=== PATIENT | female | born 1990 | race American Indian/Alaskan Native ===

== ENCOUNTER 2018-02-19 20:57 | Inpatient (IN) | payer OTHER ==
[2018-02-19] MEDS ORDERED: ZOFRAN IV PRN (22:10)
[2018-02-19] MEDS ORDERED: BRETHINE SUB-Q PRN (22:10)
[2018-02-19] MEDS ORDERED: CERVIDIL VG ONE (22:10)
[2018-02-19] MEDS ORDERED: MINERAL OIL PO PRN (22:10)
[2018-02-19] MEDS ORDERED: XYLOCAINE 2% INFILTRATI ONE (22:10)
[2018-02-19] MEDS ORDERED: ePHEDrine SULFATE IV PRN (22:10)
[2018-02-19] MEDS ORDERED: BRETHINE IVP PRN (22:10)
[2018-02-19] MEDS ORDERED: PITOCin/NS 30 UNIT/500ML 30 UNITS/500 ML BAG IV SCH (23:00)
[2018-02-19] MEDS ORDERED: PITOCin/NS 20 UNIT/1000ML DRIP 20 UNITS/1,000 ML BAG IV SCH (23:00)
[2018-02-19] MEDS ORDERED: LACTATED RINGERS 1,000 ML IV SCH (23:00)
[2018-02-19 23:08] LABS: Hematocrit 39.3 % (30.3-42.9); Hemoglobin 13.2 gm/dl (10.1-14.3); Mean Corpuscular HGB Conc 34 % (30-34); Mean Corpuscular Hemoglobin 28 pg (28-32); Mean Corpuscular Volume 84 fl (79-97); Platelet Count 149 K/mm3 (140-440); Red Blood Count 4.67 M/mm3 (3.65-5.03); Red Cell Distribution Width 14.5 % (13.2-15.2)
[2018-02-19] MEDS: SUBLIMAZE IV PRN (23:34)
--- NOTE | 2018-02-20 01:22 | Ultrasound Report ---
FINAL REPORT EXAM: US OB LIMITED HISTORY: presentation COMPARISON: None available. TECHNIQUE: Several real-time grayscale and color Doppler images were obtained. FINDINGS: Limited exam performed for evaluation presentation. presentation cephalic. Single live IUP demonstrated. heart rate 126 beats per minute. IMPRESSION: Single live IUP. Cephalic presentation.
[2018-02-20] MEDS: STADOL IV PRN ×3 (05:41→13:40)
--- NOTE | 2018-02-20 09:42 | History and Physical Report ---
History of Present Illness Date of examination: 02/20/18 Date of admission: 02/19/18 22:24 Chief complaint: Induction of labor History of present illness: Pt is a 27yo BF EDC 02/22/18; EGA 39 5/7 weeks presents for induction of labor per [facility] due to GDM - diet controlled. She transferred care to [facility] since 28 weeks and co-managed by [facility] for GDM. records are available and GBS is Negative. Past History Past Medical History: diabetes (GDM) Past Surgical History: no surgical history [employer] History: herpes, trichomonas Family/Genetic History: sickle cell/trait Social history: no significant social history, single - Obstetrical History Expected Date of Delivery: 02/22/18 Actual Gestation: 39 Week(s) 5 Day(s) : 2 Medications and Allergies Allergies Allergy/AdvReac Type Severity Reaction Status Date / Time No Known Allergies Allergy Verified 02/19/18 22:16 Home Medications Medication Instructions Recorded Confirmed Last Taken Type Vit,Calc76/Iron/Folic 1 tab PO DAILY 02/19/18 02/19/18 02/18/18 15:00 History [Pnv 29-1 Tablet] Active Meds: Active Medications Butorphanol Tartrate (Stadol) 2 mg IV Q2H PRN PRN Reason: Pain , Severe (7-10) Last Admin: 02/20/18 05:41 Dose: 2 mg Ephedrine Sulfate (Ephedrine Sulfate) 10 mg IV Q2M PRN PRN Reason: Hypotension Fentanyl (Sublimaze) 100 mcg IV Q2H PRN PRN Reason: Labor Pain Last Admin: 02/19/18 23:34 Dose: 100 mcg Lactated Ringer's (Lactated Ringers) 1,000 mls @ 125 mls/hr IV DIRECT FARIDEH Last Admin: 02/20/18 00:40 Dose: 125 mls/hr Oxytocin/Sodium Chloride (Pitocin/Ns 20 Unit/1000ml Drip) 20 units in 1,000 mls @ 125 mls/hr IV DIRECT FARIDEH Oxytocin/Sodium Chloride (Pitocin/Ns 30 Unit/500ml) 30 units in 500 mls @ 1 mls /hr IV TITR FARIDEH; Protocol Mineral Oil (Mineral Oil) 30 ml PO QHS PRN PRN Reason: Constipation Ondansetron HCl (Zofran) 4 mg IV Q8H PRN PRN Reason: Nausea And Vomiting Terbutaline Sulfate (Brethine) 0.25 mg SUB-Q ONCE PRN PRN Reason: Hyperstimulation/Hypertonicity Terbutaline Sulfate (Brethine) 0.25 mg IVP ONCE PRN PRN Reason: Hyperstimulation/Hypertonicity Review of Systems All systems: negative - Vital Signs Vital signs: Vital Signs Temp Pulse Resp BP 98.3 F 139 H 18 110/75 02/19/18 21:20 02/19/18 21:20 02/19/18 21:20 02/19/18 21:20 Temp Pulse Resp BP Pulse Ox 98.0 F 109 H 16 102/59 97 02/20/18 07:39 02/20/18 09:45 02/20/18 05:41 02/20/18 09:35 02/20/18 09:45 - Physical Exam Breasts: Positive: deferred Cardiovascular: Regular rate Lungs: Positive: Clear to auscultation Abdomen: Positive: normal appearance Genitourinary (Female): Positive: normal external genitalia Uterus: Positive: enlarged Extremities: Positive: normal - Obstetrical FHR: category 1 Uterine Contraction Monitor Mode: External Cervical Dilatation: 3 (per nurse) Cervical Effacement Percentage: 60 (per nurse) station: -2 Uterine Contraction Pattern: Regular Uterine Tone Measurement Phase: Contraction Uterine Contraction Intensity: Moderate Results Result Diagrams: 02/19/18 22:15 Abnormal lab results 02/19/18 Range/Units 21:20 POC Glucose 163 H (70-105) All other labs normal. Ultrasound: report reviewed Assessment and Plan - Patient Problems (1) 39 weeks gestation of Onset Date: 02/20/18 Current Visit: Yes Status: Acute Plan to address problem: A: IUP @ 39 5/7 weeks GDM - diet controlled P: Admit to L&D for cervidil/pitocin induction of labor Monitor BS's (2) GDM (gestational diabetes mellitus) Onset Date: 02/20/18 Current Visit: Yes Status: Acute Qualifiers: Gestational diabetes mellitus control: diet-controlled Trimester: third trimester Qualified Code(s): O24.410 - Gestational diabetes mellitus in , diet controlled
[2018-02-20] MEDS ORDERED: XYLOCAINE 2% INFILTRATI ONE (10:39)
[2018-02-20] MEDS ORDERED: BRETHINE IVP PRN (10:39)
[2018-02-20] MEDS ORDERED: BRETHINE SUB-Q PRN (10:39)
[2018-02-20] MEDS ORDERED: ePHEDrine SULFATE IV PRN ×2 (10:39→17:12)
[2018-02-20] MEDS ORDERED: MINERAL OIL PO PRN (10:39)
[2018-02-20] MEDS ORDERED: PITOCin/NS 30 UNIT/500ML 30 UNITS/500 ML BAG IV SCH (11:00)
[2018-02-20] MEDS ORDERED: PITOCin/NS 20 UNIT/1000ML DRIP 20 UNITS/1,000 ML BAG IV SCH ×2 (11:00→20:00)
[2018-02-20] MEDS ORDERED: LACTATED RINGERS 1,000 ML IV SCH (11:00)
[2018-02-20] MEDS: SUBLIMAZE IV PRN (15:51)
[2018-02-20] MEDS ORDERED: NARCAN 2 MG/2 ML IV PRN (17:12)
--- NOTE | 2018-02-20 17:12 | Anesthesia Consultation ---
Anesthesia Consult and Med Hx Date of service: 02/20/18 - Airway Anesthetic Teeth Evaluation: Good ROM Head & Neck: Adequate Mental/Hyoid Distance: Adequate Mallampati Class: Class III Intubation Access Assessment: Possibly Difficult - Pre-Operative Health Status ASA Pre-Surgery Classification: ASA2 - Pulmonary Hx Asthma: No COPD: No Hx Pneumonia: No - Cardiovascular System Hx Hypertension: No - Central Nervous System Hx Seizures: No Hx Psychiatric Problems: No - Endocrine Hx Renal Disease: No Hx End Stage Renal Disease: No Hx Hypothyroidism: No Hx Hyperthyroidism: No - Hematic Hx Anemia: No Hx Sickle Cell Disease: Yes (trait) - Other Systems Hx Alcohol Use: No Hx Obesity: Yes (BMI 38.4)
[2018-02-20] MEDS ORDERED: fentaNYL-BUPIV 2 MCG/ML-0.125% 200 MCG/100 ML BAG EPIDURAL SCH (18:00)
--- NOTE | 2018-02-20 19:36 | Procedure Note ---
OB Delivery Note - Delivery Date of Delivery: 02/20/18 Surgeon: TRENT HARRELL Estimated blood loss: 100cc - Vaginal Delivery presentation: vertex Delivery position: OA Intrapartum events: PROM->1hr before delivery Delivery induction: cervidil Delivery augmentation: rupture of membranes, pitocin Delivery monitor: external FHT, external uterine Route of delivery: Delivery placenta: spontaneous Delivery cord: 3 umbilical vessels Delivery laceration: 1st degree (perineal) Delivery repair: vicryl Anesthesia: epidural Delivery comments: Infant delivered OA by CNM, and cord clamped and cut - Infant A at 1 minute: 8 at 5 minutes: 9 Infant Gender: Male (4290gms)
[2018-02-20] MEDS ORDERED: BENADRYL PO PRN (19:37)
[2018-02-20] MEDS ORDERED: PHENERGAN PR PRN (19:37)
[2018-02-20] MEDS ORDERED: PHENERGAN PO PRN (19:37)
[2018-02-20] MEDS ORDERED: MILK OF MAGNESIA PO PRN (19:37)
[2018-02-20] MEDS ORDERED: NORCO 5/325 PO PRN (19:37)
[2018-02-20] MEDS ORDERED: TUCKS PAD TP PRN (19:37)
[2018-02-20] MEDS ORDERED: TYLENOL PO PRN (19:37)
[2018-02-20] MEDS ORDERED: LANSINOH TP PRN (19:37)
[2018-02-20] MEDS ORDERED: ZOFRAN IV PRN (19:37)
[2018-02-20] MEDS ORDERED: DULCOLAX PR PRN (19:37)
[2018-02-20] MEDS ORDERED: SODIUM CHLORIDE FLUSH SYRINGE 10 ML IV NR (20:00)
[2018-02-20] MEDS: MOTRIN PO SCH (23:09)
[2018-02-20] MEDS: COLACE PO SCH (23:10)
[2018-02-20] MEDS: FEOSOL PO SCH (23:10)
[2018-02-21] MEDS: MOTRIN PO SCH ×3 (05:18→23:56)
[2018-02-21 08:28] LABS: Hematocrit 35.2 % (30.3-42.9); Hemoglobin 11.5 gm/dl (10.1-14.3)
[2018-02-21] MEDS ORDERED: PRENATAL VITAMIN PO SCH (10:00)
--- NOTE | 2018-02-21 11:26 | Progress Note ---
Assessment and Plan - Patient Problems (1) 39 weeks gestation of Onset Date: 02/20/18 Current Visit: Yes Status: Resolved (2) GDM (gestational diabetes mellitus) Onset Date: 02/20/18 Current Visit: Yes Status: Resolved Qualifiers: Gestational diabetes mellitus control: diet-controlled Trimester: third trimester Qualified Code(s): O24.410 - Gestational diabetes mellitus in , diet controlled (3) (normal spontaneous vaginal delivery) Onset Date: 02/21/18 Current Visit: Yes Status: Resolved Plan to address problem: A: S/P - PPD #1 Doing well GDM - stable P: May go home tomorrow Subjective - Subjective Date of service: 02/21/18 Principal diagnosis: s/p - PPD #1 Interval history: Pt is feeling well. Bleeding improved. Patient reports: appetite normal, voiding normally, pain well controlled, ambulating normally, no dizzy ambulation, no nauseated : doing well, nursing well, bottle feeding Objective - Vital Signs Latest vital signs: Vital Signs Temp Temp Pulse Resp BP BP Pulse Ox 02/21/18 07:39 98.1 F 106 H 18 82/47 96 02/21/18 04:50 98.3 F 98 H 20 113/78 99 02/20/18 23:09 18 02/20/18 22:56 98.8 F 104 H 20 107/72 97 02/20/18 21:38 116 H 102/56 02/20/18 21:23 118 H 103/57 02/20/18 21:15 110 H 97 02/20/18 21:10 109 H 97 02/20/18 21:08 108 H 94/54 02/20/18 21:05 103 H 98 02/20/18 21:04 112 H 99/61 0 L 02/20/18 20:53 109 H 101/59 02/20/18 20:38 116 H 102/61 02/20/18 20:23 114 H 107/63 02/20/18 20:08 107 H 106/60 02/20/18 20:00 97.1 F L 136 H 48 H 02/20/18 19:53 106 H 102/56 02/20/18 19:51 113 H 108/55 02/20/18 19:49 112 H 100/56 02/20/18 19:46 102 H 112/64 18 19:44 100 H 106/65 18 19:42 103 H 112/65 18 19:40 105 H 106/65 18 19:39 107 H 104/69 18 19:36 110 H 111/67 18 19:34 98 H 112/64 18 19:32 104 H 115/65 18 19:30 101 H 110/63 18 19:29 100 H 108/61 18 19:27 107 H 110/65 18 19:25 111 H 108/60 02/20/18 19:21 113 H 120/65 02/20/18 19:19 116 H 129/83 02/20/18 19:14 106 H 94/53 02/20/18 19:12 100 H 96/52 02/20/18 19:11 115 H 100/59 02/20/18 19:09 109 H 90/55 02/20/18 19:06 100 H 113/69 18 19:05 98 H 100 02/20/18 19:04 98 H 108/69 18 19:02 101 H 107/69 02/20/18 19:00 96 H 107/67 18 18:58 95 H 108/67 18 18:57 102 H 109/73 18 18:55 100 H 99 18 18:54 101 H 109/68 18 18:52 107 H 113/71 02/20/18 18:50 105 H 108/69 98 18 18:48 101 H 110/69 18 18:47 100 H 111/73 18 18:45 101 H 99 18 18:44 100 H 109/56 18 18:42 102 H 116/71 18 18:40 100 H 114/69 100 18 18:39 99 H 115/71 18 18:37 107 H 97/61 18 18:35 102 H 143/79 100 0718 18:33 108 H 107/57 18 18:31 116 H 106/51 02/20/18 18:30 111 H 100 18 18:28 100 H 110/69 02/20/18 18:26 95 H 111/68 18 18:25 94 H 100 0718 18:24 95 H 110/70 02/20/18 18:22 106 H 102/67 18 18:20 101 H 105/69 100 02/20/18 18:18 97 H 105/66 02/20/18 18:16 95 H 105/63 02/20/18 18:15 101 H 108/65 100 02/20/18 18:12 110 H 85/62 02/20/18 18:11 106 H 92/59 02/20/18 18:10 106 H 100 02/20/18 18:09 99 H 100/64 02/20/18 18:06 106 H 81/49 02/20/18 18:05 114 H 88/50 100 02/20/18 18:02 103 H 96/57 02/20/18 18:00 101 H 104/63 02/20/18 17:59 106 H 100/60 02/20/18 17:56 116 H 80/52 02/20/18 17:55 117 H 78/50 100 02/20/18 17:53 113 H 94/55 02/20/18 17:52 71 L 02/20/18 17:50 106 H 100 02/20/18 17:49 108 H 104/69 02/20/18 17:46 111 H 114/73 02/20/18 17:45 114 H 119/72 100 02/20/18 17:40 110 H 100 02/20/18 17:37 115 H 94 02/20/18 17:35 111 H 100 02/20/18 17:29 111 H 140/84 100 02/20/18 17:24 117 H 99 02/20/18 17:19 115 H 100 02/20/18 17:14 119 H 100 02/20/18 17:12 104 H 108/62 02/20/18 17:09 95 H 97 02/20/18 17:04 125 H 97 02/20/18 16:59 121 H 98 02/20/18 16:54 102 H 98 02/20/18 16:49 118 H 99 07/12/18 16:44 111 H 97 07/12/18 16:39 97 H 96 0712/18 16:34 105 H 99 07/12/18 16:29 111 H 96 0712/18 16:24 102 H 97 07/12/18 16:19 99 H 97 071218 16:14 112 H 96 071218 16:09 93 H 96 0718 16:04 108 H 96 0718 15:59 98 H 99 0718 15:54 101 H 98 07/12/18 15:51 14 07/18 15:49 101 H 99 0712/18 15:44 94 H 98 07/18 15:39 97 H 99 0718 15:34 100 H 100 07//18 15:29 88 98 07/12/18 15:24 105 H 100 0718 15:19 94 H 100 0718 14:57 90 98 0718 14:52 94 H 100 18 14:47 100 H 100 0718 14:42 91 H 98 18 14:37 96 H 100 18 14:32 92 H 99 18 14:27 88 99 18 14:22 85 99 18 14:17 90 98 0718 14:12 99 H 93 18 14:07 88 94 0718 14:02 100 H 98 18 14:01 102 H 93 18 13:56 94 H 96 18 13:51 83 94 07/1218 13:46 95 H 94 18 13:40 16 18 13:19 101 H 98 0718 13:13 97 H 100 0718 13:08 98 H 100 18 13:03 108 H 100 0718 12:58 107 H 55 L 0718 12:55 95 H 100 07/1218 12:50 91 H 100 07/12/18 12:45 94 H 100 0718 12:40 93 H 100 0718 12:35 91 H 100 0718 12:30 95 H 100 02/20/18 12:25 93 H 99 02/20/18 12:20 100 H 100 02/20/18 12:15 101 H 99 02/20/18 12:09 93 H 99 02/20/18 12:05 93 H 100 02/20/18 11:59 98 H 97 02/20/18 11:54 91 H 96 02/20/18 11:49 102 H 99 02/20/18 11:43 97 H 97 02/20/18 11:38 100 H 99 02/20/18 11:33 98 H 94 Intake and Output 02/20/18 02/21/18 02/21/18 22:59 06:59 14:59 Intake Total 600 Output Total 500 1400 Balance -500 -800 Intake: Oral 600 Output: Urine 500 1400 Indwelling Catheter 500 Void 1400 Other: Total, Intake Amount 360 Total, Output Amount 500 400 Estimated Blood Loss 100 - Exam Breasts: Present: deferred Cardiovascular: Present: Regular rate Lungs: Present: Clear to auscultation Abdomen: Present: normal appearance, soft Uterus: Present: normal, firm, fundal height below umbilicus Extremities: Present: normal - Labs Labs: Abnormal lab results 02/20/18 Range/Units 23:23 POC Glucose 189 H (70-105) Laboratory Tests 02/19/18 02/19/18 02/19/18 21:20 22:15 22:15 WBC 10.5 RBC 4.67 Hgb 13.2 Hct 39.3 MCV 84 MCH 28 MCHC 34 RDW 14.5 Plt Count 149 POC Glucose 163 H RPR Nonreactive Blood Type Antibody Screen 02/19/18 02/20/18 02/20/18 22:15 00:07 09:57 WBC RBC Hgb Hct MCV MCH MCHC RDW Plt Count POC Glucose 82 87 RPR Blood Type O POSITIVE Antibody Screen Negative 02/20/18 02/21/18 02/21/18 23:23 07:49 08:19 WBC RBC Hgb 11.5 Hct 35.2 MCV MCH MCHC RDW Plt Count POC Glucose 189 H 105 RPR Blood Type Antibody Screen 02/21/18 11:29 WBC RBC Hgb Hct MCV MCH MCHC RDW Plt Count POC Glucose 92 RPR Blood Type Antibody Screen
--- NOTE | 2018-02-21 15:31 | Discharge Summary ---
Providers - Providers Date of Admission: 02/19/18 22:24 Date of discharge: 02/22/18 Attending physician: TRENT HARRELL Primary care physician: TRENT HARRELL Hospitalization Reason for admission: induction of labor, IUP at term, other (GDM) Delivery: Episiotomy: none Laceration: 1st degree Other procedures: none complications: none Discharge diagnosis: IUP at term delivered [place] baby: male Hospital course: Unremarkable. Condition at discharge: Good Disposition: DC-01 TO HOME OR SELFCARE - Discharge Diagnoses (1) 39 weeks gestation of Status: Resolved (2) GDM (gestational diabetes mellitus) Status: Resolved Qualifiers: Gestational diabetes mellitus control: diet-controlled Trimester: third trimester Qualified Code(s): O24.410 - Gestational diabetes mellitus in , diet controlled (3) (normal spontaneous vaginal delivery) Status: Resolved Plan - Discharge Medications Prescriptions: Ferrous Sulfate [Feosol 325 MG tab] 325 mg PO BID #60 tablet Ibuprofen [Motrin 600 MG tab] 600 mg PO Q6H #30 tablet Vit-Fe Fumar-FA [ Vitamin] 1 each PO QDAY #30 tablet - Provider Discharge Summary Activity: routine, no sex for 6 weeks, no heavy lifting 4 weeks, no strenuous exercise Diet: routine Instructions: routine Additional instructions: [] Smoking cessation referral if applicable(refer to patient education folder for contact #) [] Refer to [facility] Booklet Call your doctor immediately for: * Fever > 100.5 * Heavy vaginal bleeding ( >1 pad per hour) * Severe persistent headache * Shortness of breath * Reddened, hot, painful area to leg or breast * Drainage or odor from incision. * Keep incision clean and dry at all times and follow doctor's instructions regarding bathing/showering - Follow up plan Follow up: TRENT HARRELL MD [Primary Care Provider] - 6 Weeks
[2018-02-21] MEDS ORDERED: M-M-R II VACCINE SUB-Q ONE (19:37)
[2018-02-21] MEDS ORDERED: BOOSTRIX IM ONE (19:37)
[2018-02-21] MEDS: FEOSOL PO SCH (23:52)
[2018-02-21] MEDS: COLACE PO SCH (23:56)
[2018-02-22] MEDS: MOTRIN PO SCH (08:09)
[2018-02-22] MEDS: FEOSOL PO SCH (08:09)
[2018-02-22] MEDS: COLACE PO SCH (08:09)
[2018-02-22 11:52] VITALS: BP 101/66
== END 2018-02-22 14:00 | disposition home or self-care (01) | DRG 775 ==
LOC: TRG 20:57 → LD 22:24 → TRG 22:24 → OB 02-20 22:36
PROVIDERS: ADMIT Obstetrics & Gynecology; ATTEND Obstetrics & Gynecology
PROC: 10E0XZZ Delivery of Products of Conception, External Approach (ICD-10-PCS; principal; 2018-02-20)
PROC: 0HQ9XZZ Repair Perineum Skin, External Approach (ICD-10-PCS; 2018-02-20)
PROC: 3E0R3BZ Introduction of Anesthetic Agent into Spinal Canal, Percutaneous Approach (ICD-10-PCS; 2018-02-20)
PROC: 00HU33Z Insertion of Infusion Device into Spinal Canal, Percutaneous Approach (ICD-10-PCS; 2018-02-20)
PROC: 3E0P7VZ Introduction of Hormone into Female Reproductive, Via Natural or Artificial Opening (ICD-10-PCS; 2018-02-20)
DX: O24.410 Gestational diabetes mellitus in pregnancy, diet controlled (principal); O99.214 Obesity complicating childbirth; E66.9 Obesity, unspecified; O42.92 Full-term premature rupture of membranes, unspecified as to length of time between rupture and onset of labor; O70.0 First degree perineal laceration during delivery; Z68.41 Body mass index [BMI] 40.0-44.9, adult; Z37.0 Single live birth; Z3A.39 39 weeks gestation of pregnancy
CPT/HCPCS: 36415; 76815; 82962; 85014; 85018; 85027; 86592; 86850; 86900; 86901; 99211; G0463; J0595; J2590; J3010; J7120